=== PATIENT | male | born 1990 | race Caucasian/White ===

== ENCOUNTER 2016-10-16 19:44 | Emergency (ER) | payer BC, OTHER ==
[~2016-10-16] VITALS: Ht 177.8 cm; Wt 97.5 kg
[2016-10-16] MEDS ORDERED: HYDROcodone-ACET 5/325MG TAB PO ONE (20:15)
[2016-10-16] MEDS ORDERED: ONDANSETRON ODT 4 MG TAB PO ONE (20:15)
[2016-10-16 20:35] LABS: DEFINITIVE VIEW TRANSMISSION; Mean Platelet Volume 7.5 fL (7.4-10.4)
[2016-10-16 20:42] LABS: Basophils # (auto) 0 uL; Basophils % (auto) 0.5 % (0.0-2.0); Eosinophils # (auto) 0.7 uL; Eosinophils % (auto) 6.8 % (0.0-7.0); Hematocrit 52.2 % (41.0-53.0); Hemoglobin 17.6 g/dL (13.5-17.5); Lymphocytes # (auto) 2.7 uL; Lymphocytes % (auto) 27.7 % (10.0-50.0); Mean Corpuscular Hemoglobin 28.7 pg (28.0-32.0); Mean Corpuscular Hgb Conc. 33.7 g/dL (32.0-36.0); Mean Corpuscular Volume 85.2 fL (80.0-100.0); Monocytes # (auto) 0.3 uL; Monocytes % (auto) 3.6 % (0.0-12.0); Neutrophils # (auto) 5.9 uL; Neutrophils % (auto) 61.4 % (37.0-80.0); Platelet Count (auto) 333 10^3/uL (140-450); Red Cell Distribution Width 13.5 % (11.6-16.0); White Blood Cell 9.6 10^3/uL (4.4-10.8)
[2016-10-16 20:48] LABS: INR 0.99 (0.9-1.15); Partial Thromboplastin Time 22.4 sec (22.64-33.71); Prothrombin Time 10.7 sec (9.37-12.3)
[2016-10-16 21:47] LABS: Albumin 2.8 g/dL (3.4-5.0); Calcium 8.1 mg/dL (8.5-10.1)
[2016-10-16 21:50] LABS: Bilirubin, Total 0.3 mg/dL (0.2-1.0); Total Protein 6.5 g/dL (6.4-8.2)
[2016-10-16 22:00] VITALS: BP 138/79
== END 2016-10-16 22:44 | disposition home or self-care (01) ==
LOC: ER 19:44 → EDBD 19:44 → ER 22:44
DX: S42.021A Displaced fracture of shaft of right clavicle, initial encounter for closed fracture (principal); R07.81 Pleurodynia; M25.551 Pain in right hip; V86.59XA Driver of other special all-terrain or other off-road motor vehicle injured in nontraffic accident, initial encounter; Y93.55 Activity, bike riding; Y99.8 Other external cause status; Y92.89 Other specified places as the place of occurrence of the external cause
CPT/HCPCS: 36415; 71101; 73030; 73502; 80053; 83690; 85025; 85610; 85730; 99285; Q0162